=== PATIENT | female | born 1945 | race Caucasian/White ===

== ENCOUNTER → 2017-10-15 | Outpatient (CLI) | payer OTHER | END | disposition home or self-care (01) | LOC: CFH 09:20 | PROVIDERS: ATTEND Family Medicine | DX: Z12.31 Encounter for screening mammogram for malignant neoplasm of breast (principal) | CPT/HCPCS: 77067 ==

== ENCOUNTER 2019-03-14 19:53 | Inpatient (IN) | payer MEDICARE, OTHER ==
[~2019-03-14] VITALS: Ht 177.8 cm; Wt 129.0 kg
[2019-03-14] MEDS ORDERED: ACETAMINOPHEN 325 MG TABLET PO ONE (21:00)
[2019-03-14] MEDS ORDERED: SODIUM CHLORIDE FLUSH 10ML SYR IVF ONE (21:00)
[2019-03-14] MEDS ORDERED: ONDANSETRON 2MG/ML, 2ML IVPush ONE (21:00)
[2019-03-14] MEDS ORDERED: CEFTRIAXONE PMX 1GM/50ML 50 ML IVPB ONE ×2 (21:00)
[2019-03-14] MEDS ORDERED: KETOROLAC 30 MG/1 ML IVPush ONE (21:00)
[2019-03-14] MEDS ORDERED: SODIUM CHLORIDE 0.9% 1,000ML IVBOLUS ONE (21:00)
[2019-03-14 21:23] LABS: BASOPHILS # (AUTO) 0.02 x10^3/uL (0-0.1); BASOPHILS % (AUTO) 0 % (0-1); EOSINOPHILS # (AUTO) 0.63 x10^3/uL (0-0.4); EOSINOPHILS % (AUTO) 6 % (1-7); LYMPHOCYTES # (AUTO) 1.73 x10^3/uL (1-3.4); LYMPHOCYTES % (AUTO) 15 % (22-44); MD NO; MEAN CORPUSCULAR HEMOGLOBIN 29.8 pg (27.0-34.8); MEAN CORPUSCULAR HGB CONC 33.2 g/dL (32.4-35.8); MEAN CORPUSCULAR VOLUME 89.9 fL (80-100); MEAN PLATELET VOLUME 8.4 fL (7.4-10.4); MONOCYTES # (AUTO) 0.74 x10^3/uL (0.2-0.8); MONOCYTES % (AUTO) 7 % (2-9); NEUTROPHILS # (AUTO) 8.17 x10^3/uL (1.8-6.8); NEUTROPHILS % (AUTO) 72 % (42-75); PLATELET COUNT 295 x10^3/uL (130-400); RED BLOOD COUNT 5.32 x10^6/uL (3.82-5.3); RED CELL DISTRIBUTION WIDTH 13.6 % (9.6-15.2)
[2019-03-14 21:30] LABS: ALANINE AMINOTRANSFERASE 18 U/L (12-78); ALBUMIN 3.5 g/dL (3.4-5.0); ANION GAP 11 mmol/L (5-15); CALCIUM 8.6 mg/dL (8.5-10.1); CHLORIDE 100 mmol/L (98-107); CREATININE 1.08 mg/dL (0.55-1.02)
[2019-03-14] MEDS ORDERED: ONDANSETRON 2MG/ML, 2ML ONE (21:30)
[2019-03-14] MEDS ORDERED: CEFTRIAXONE PMX 1GM/50ML 50 ML ONE (21:30)
[2019-03-14] MEDS ORDERED: KETOROLAC 30 MG/1 ML ONE (21:30)
[2019-03-14] MEDS ORDERED: ACETAMINOPHEN 325 MG TABLET ONE (21:31)
[2019-03-14 21:33] LABS: ALKALINE PHOSPHATASE 75 U/L (45-117); TOTAL PROTEIN 7.3 g/dL (6.4-8.2)
--- NOTE | 2019-03-14 21:56 | NUR ---
IV STARTED. ORDERED FLUIDS AND MEDS GIVEN. PT ON CARDIAC AND VITALS MONITORS. BILAT BEDRAILS UP. CALL LIGHT WITHIN REACH.
--- NOTE | 2019-03-14 22:03 | NUR ---
BLOOD CX DONE, ORDERED ABX STARTED. PT O2 SAT ON RA 88-86%. PT PLACED ON 2L O2 PER N/C. ERP AWARE OF PT DESATING ON RA. ORDERS PLACED.
[2019-03-14 23:11] LABS: MICROSCOPIC NOT IND
[2019-03-14 23:14] LABS: CULTURE INDICATED? NO
--- NOTE | 2019-03-14 23:22 | NUR ---
PT ABLE TO AMBULATE TO BATHROOM STEADILY TO PROVIDE URINE SAMPLE. PT BACK IN BED AND ON VITALS MONITORS. PT STATED SHE HAD A CANTRELL THAT HAS NOW RESOLVED. FAMILY AT BEDSIDE. WILL CONTINUE TO MONITOR.
[2019-03-14 23:45] LABS: TROPONIN I < 0.015 ng/mL (0.000-0.045)
[2019-03-15] MEDS ORDERED: OMNIPAQUE 350 MG/ML, 100ML BOTTLE ONE (00:02)
--- NOTE | 2019-03-15 00:04 | NUR ---
PT BACK FROM CT.
[2019-03-15] MEDS ORDERED: AZITHROMYCIN 500 MG in SODIUM CHLORIDE 0.9% 250 ML IV ONE (01:30)
[2019-03-15 02:56] VITALS: BP 132/68
[2019-03-15 06:50] VITALS: BP 129/73
[2019-03-15] MEDS: INSULIN LISPRO 100 UNITS/ML, PEN SQ-INSULIN SCH ×4 (08:44→21:11)
[2019-03-15] MEDS: ACETAMINOPHEN 325 MG TABLET PO PRN ×2 (08:55→19:22)
[2019-03-15] MEDS ORDERED: CEFTRIAXONE PMX 1GM/50ML 50 ML IV SCH (09:00)
[2019-03-15] MEDS ORDERED: METF500S5 PO (09:38)
[2019-03-15] MEDS ORDERED: PRAV20TA2 PO (09:38)
[2019-03-15] MEDS ORDERED: ATEN50TA41 PO (09:38)
[2019-03-15] MEDS ORDERED: AZITHROMYCIN 500 MG in SODIUM CHLORIDE 0.9% 250 ML IV SCH (10:00)
[2019-03-15] MEDS: HEPARIN 5,000 UNITS/ML, 1ML SQ SCH ×2 (13:02→21:06)
[2019-03-15 14:18] VITALS: BP 114/66
[2019-03-15 19:30] VITALS: BP 141/83
[2019-03-15] MEDS ORDERED: PRAVASTATIN 20 MG TABLET HOMEMEDPO SCH (21:00)
[2019-03-16 02:52] VITALS: BP 151/87
[2019-03-16] MEDS: ACETAMINOPHEN 325 MG TABLET PO PRN (05:27)
[2019-03-16] MEDS: HEPARIN 5,000 UNITS/ML, 1ML SQ SCH ×2 (05:27→13:00)
[2019-03-16 06:13] LABS: MEAN CORPUSCULAR HEMOGLOBIN 30.2 pg (27.0-34.8); MEAN CORPUSCULAR HGB CONC 33.3 g/dL (32.4-35.8); MEAN CORPUSCULAR VOLUME 90.7 fL (80-100); MEAN PLATELET VOLUME 8.9 fL (7.4-10.4); PLATELET COUNT 287 x10^3/uL (130-400); RED BLOOD COUNT 4.98 x10^6/uL (3.82-5.3); RED CELL DISTRIBUTION WIDTH 14.2 % (9.6-15.2)
[2019-03-16 06:34] LABS: BASOPHILS # (AUTO) 0.03 x10^3/uL (0-0.1); BASOPHILS % (AUTO) 0 % (0-1); EOSINOPHILS # (AUTO) 0.62 x10^3/uL (0-0.4); EOSINOPHILS % (AUTO) 8 % (1-7); LYMPHOCYTES # (AUTO) 2.02 x10^3/uL (1-3.4); LYMPHOCYTES % (AUTO) 25 % (22-44); MD SCAN; MONOCYTES # (AUTO) 0.74 x10^3/uL (0.2-0.8); MONOCYTES % (AUTO) 9 % (2-9); NEUTROPHILS # (AUTO) 4.57 x10^3/uL (1.8-6.8); NEUTROPHILS % (AUTO) 57 % (42-75)
[2019-03-16 06:47] LABS: CHLORIDE 108 mmol/L (98-107)
[2019-03-16 06:52] LABS: ANION GAP 9 mmol/L (5-15); CALCIUM 8.7 mg/dL (8.5-10.1); CREATININE 0.75 mg/dL (0.55-1.02)
[2019-03-16 06:55] VITALS: BP 143/83
[2019-03-16] MEDS: INSULIN LISPRO 100 UNITS/ML, PEN SQ-INSULIN SCH ×2 (07:32→11:00)
[2019-03-16] MEDS ORDERED: metFORMIN 850 MG TABLET PO SCH (08:00)
[2019-03-16] MEDS ORDERED: ACETAMINOPHEN 325 MG TABLET PO PRN (08:00)
[2019-03-16] MEDS ORDERED: CARVEDILOL 3.125 MG TABLET PO SCH (08:00)
[2019-03-16] MEDS ORDERED: SODIUM CHLORIDE 0.9% 1,000 ML IV SCH (08:00)
[2019-03-16] MEDS ORDERED: METF850T10 PO (11:52)
[2019-03-16] MEDS ORDERED: LEVO750T6 PO (11:52)
[2019-03-16] MEDS ORDERED: CARV3.1212 PO (11:52)
[2019-03-16 13:08] VITALS: BP 148/87
== END 2019-03-16 14:35 | disposition home or self-care (01) | DRG 193 ==
LOC: ED 23:37 → EDIP 03-15 01:22 → 4NOR 03-15 02:20
PROVIDERS: ADMIT Internal Medicine; ATTEND Internal Medicine
DX: J15.9 Unspecified bacterial pneumonia (principal); J96.01 Acute respiratory failure with hypoxia; E87.1 Hypo-osmolality and hyponatremia; Z68.41 Body mass index [BMI] 40.0-44.9, adult; E11.9 Type 2 diabetes mellitus without complications; E66.01 Morbid (severe) obesity due to excess calories; E86.0 Dehydration; H81.09 Meniere's disease, unspecified ear; I10 Essential (primary) hypertension; K57.30 Diverticulosis of large intestine without perforation or abscess without bleeding; Z16.23 Resistance to quinolones and fluoroquinolones; Z79.84 Long term (current) use of oral hypoglycemic drugs; Z87.440 Personal history of urinary (tract) infections; Z88.2 Allergy status to sulfonamides
CPT/HCPCS: 36415; 71046; 71275; 74177; 80048; 80053; 81003; 82962; 83605; 84145; 84484; 85025; 87040; 93005; 96374; 96375; 99291; G0378; J0456; J0696; J1644; J1885; J2405; Q9967; J1815; J7030; J7050

== ENCOUNTER → 2021-01-07 | Outpatient (CLI) | payer MEDICARE ==
[~2021-01-07] MED LIST: ATEN50TA41 PO; CARV3.1212 PO; LEVO750T6 PO; METF500S5 PO; METF850T10 PO; PRAV20TA2 PO
== END | disposition home or self-care (01) ==
LOC: CFH 11:08
PROVIDERS: ATTEND Family Medicine
DX: Z12.31 Encounter for screening mammogram for malignant neoplasm of breast (principal)
CPT/HCPCS: 77067